=== PATIENT | female | born 1965 | race Caucasian/White ===

== ENCOUNTER 2020-12-09 05:04 | Emergency (ER) | payer BC ==
[2020-12-09] MEDS: Sodium Chloride 0.9% 10 ML Syringe FLUSH PRN (05:33)
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
[2020-12-09] MEDS: Ondansetron 4 MG/2 ML SDV IVPUSH ONE (05:49)
[2020-12-09] MEDS: Ketorolac 30 MG/ML SDV IVPUSH ONE (05:58)
[2020-12-09] MEDS: Ketorolac 30 MG/ML SDV IM ONE (06:03)
[2020-12-09] MEDS: Sodium Chloride 0.9% 1,000 ML IV ONE (06:08)
[2020-12-09 06:13] LABS: ANION GAP 13.9 mmol/L (5-15); CHLORIDE,CL 102 mmol/L (98-107); SODIUM,NA 138 mmol/L (136-145)
--- NOTE | 2020-12-09 08:08 | CT ---
[id number] CT/CT Abdomen Pelvis WO IV EXAM: CT Abdomen Pelvis WO IV CLINICAL DATA: HEMATURIA WITH FLANK PAIN. COMPARISON STUDY: None. FINDINGS: Lung bases are clear. Liver, spleen, pancreas, and adrenal glands are unremarkable. Cholecystectomy. No urinary tract calculi or evidence of urinary tract obstruction. Postsurgical change from gastric bypass. Postsurgical change from prior right-sided abdominal hernia repair. No bowel obstruction or inflammation. No evidence of bowel perforation. 34 x 27 x 40 mm mass in the pelvis left of midline. Density is higher than that of water. Peripheral rim is partially calcified. This is adjacent to the left adnexal region. Hysterectomy. Adnexal region is unremarkable. Spondylosis, including facet joint arthropathy at L4-5 and L5-S1 resulting in mild grade 1 anterolisthesis. IMPRESSION: No urinary tract calculi or evidence of urinary tract obstruction. Etiology of hematuria is not radiographically evident. Additional evaluation is recommended. 40 x 34 x 27 mm left adnexal mass not consistent with a cyst. Finding is nonspecific. Correlation with any prior imaging would be of benefit. If none is available, pelvic ultrasound is recommended. Other chronic findings are described above. Albin Sauceda MD 12/09/20 0807 Thank you for allowing us to participate in the care of your patient.
== END 2020-12-09 07:30 | disposition home or self-care (01) ==
LOC: KA.ED 05:04
DX: R31.9 Hematuria, unspecified (principal); R29.898 Other symptoms and signs involving the musculoskeletal system; R74.8 Abnormal levels of other serum enzymes; E78.00 Pure hypercholesterolemia, unspecified; E66.9 Obesity, unspecified; Z68.43 Body mass index [BMI] 50.0-59.9, adult; Z79.899 Other long term (current) drug therapy
CPT/HCPCS: 74176; 80053; 81001; 84484; 85025; 93005; 96372; 96374; 96375; 99284; J1885; J2405; J7030